=== PATIENT | male | born 1965 | race Caucasian/White ===

== ENCOUNTER 2016-04-06 17:51 | Outpatient (CLI) | payer BC ==
--- NOTE | 2016-04-10 16:50 | DIAGNOSTIC IMAGING REPORT ---
PROCEDURE: US SOFT TISSUE THYR/NECK/HEAD INDICATION: HYPERTHYROID TECHNIQUE: Black scale and color Doppler sonographic images of the thyroid gland were obtained. COMPARISON: None. FINDINGS: RIGHT LOBE: Right lobe of the thyroid gland is enlarged (5.1 x 2.7 x 2.1 cm) with multiple nodules (large 3.3 cm lower pole and a smaller 0.9 cm upper pole nodules). LEFT LOBE: Left lobe of the thyroid gland is enlarged (5.2 x 2.3 x 1.9 cm) with multiple nodules (1.3 cm lower pole, 1.2 cm mid pole, 0.7 cm upper pole cyst). ISTHMUS: The isthmus is enlarged secondary to a 1.5 x 0.6 x 1.4 cm complex nodule. IMPRESSION: 1. Moderately enlarged multinodular thyroid gland, most consistent with multiple degenerating benign adenomas. Early follow-up thyroid ultrasound in 6 months is recommended to confirm stability. 2. Nuclear medicine thyroid scan with uptakes is recommended at this time, to evaluate the etiology of patient's hyperthyroidism. 4. Findings discussed with SUSAN Miller.
== END 2016-04-06 23:00 ==
LOC: US SRH 17:51
DX: E04.2 Nontoxic multinodular goiter (principal)

== ENCOUNTER 2016-04-13 20:55 | Emergency (ER) | payer BC ==
--- NOTE | 2016-04-13 23:29 | DIAGNOSTIC IMAGING REPORT ---
PROCEDURE: XR ANKLE 3 OR 4 VIEWS - RIGHT INDICATION: TRAUMA/INJURY TECHNIQUE: Four views. COMPARISON: None. FINDINGS: There mild degenerate changes of the right ankle mortise joint with small peripheral osteophytes. Osseous structures and joint spaces are otherwise normal. There is a moderate Achilles spur of the right os calcis (incidental finding). IMPRESSION: 1. Mild degenerative changes. 2. Otherwise negative right ankle.
--- NOTE | 2016-04-13 23:33 | ED CLINICAL REPORT ---
Clinical Report - Physicians/Mid Levels [facility] [address] [place] [address] 04/13/2016 20:55 Patient: RONAN MONAHAN Arrived- By private vehicle. Historian- patient. HISTORY OF PRESENT ILLNESS Chief Complaint: Injury to the right ankle. The injury happened today. Occurred at work. ( patient reports no preceding symptoms.). (tripped and fell). Patient is experiencing moderate pain. Patient denies injury to the head or neck. No other injury. (Patient reports moderate amount of swelling. patient states that there has been no numbness weakness, or tingling. Patient has been able to ambulate however reports that this worsens the discomfort. Patient reports that it is improved with rest. Patient states that he has hadankle sprains in the past.). REVIEW OF SYSTEMS The patient complains of pain on weight bearing. He has had swelling. No tingling, weakness, numbness or skin laceration. All systems otherwise negative, except as recorded above. PAST HISTORY See nurses notes. Tetanus immunization status is up-to-date. Medications: Unable to Obtain. Allergies: No Known Drug Allergy. SOCIAL HISTORY Never smoker. No alcohol use or drug use. Is a local resident. ADDITIONAL NOTES The nursing notes have been reviewed. PHYSICAL EXAM Vital Signs: 04/13/2016 22:47 BP: 137/62. HR: 82. RR: 16. O2 saturation: 100%. Temp: 97.8 F. Pain level now: 8/10. Blood pressure normal. Oxygen saturation normal. Appearance: Alert. Oriented X3. No acute distress. Head: Head atraumatic. Neck: Normal inspection. Neck supple. C-spine non-tender. No vertebral tenderness. CVS: Normal heart rate and rhythm. Heart sounds normal. Pulses normal. Respiratory: No respiratory distress. Breath sounds normal. Chest nontender. Abdomen: No visible injury. Soft and nontender. Bowel sounds normal. No mass. Back: Normal inspection. No tenderness. ROM normal. Skin: Skin intact. Skin warm and dry. Extremities: (tenderness to the lateral malleolus. No bony abnormality. No crepitus. Skin is intact. No overlying skin changes. patient is able move all toes. Sensation is grossly intact. Capillary refill less than 3 seconds. Compartments are soft. No other bony abnormalities or tenderness noted. No tenderness at the knee.). LABS, X-RAYS, AND EKG Rt Ankle X-ray: No fracture. Normal alignment. No bony lesion. Mild soft tissue swelling diffusely. Views: AP, lateral, mortise and oblique. The X-rays were independently viewed by me and interpreted contemporaneously by me. PROGRESS AND PROCEDURES Course of Care: The patient is a pleasant 51-year-old male presenting for evaluation of right-sided ankle pain. On examination, patient has tenderness to the lateral malleolus. Because of this, radiographs of the ordered of the right ankle. No signs of neurovascular compromise. Does not appear to be a septic joint or have compartment syndrome. Patient is agreeable to treatment plan. Patient's workup does not show any acute osseous abnormalities. Patient continues to be neurovascularly intact on repeat examination. I discussed the patient workup here in emergency department and need for follow-up with his doctor. Do not feel patient needs to be admitted to the hospital or require further emergency department workup/evaluation. Discussed with patient workup, diagnosis, home care, follow-up, and return precautions. All questions answered. The patient expressed understanding of these instructions and was agreeable to them. Disposition: Discharged. Condition: good. CLINICAL IMPRESSION 04/13/2016 23:12 Temp: 97.7 F. 04/13/2016 22:47 BP: 137/62. HR: 82. RR: 16. O2 saturation: 100%. Temp: 97.8 F. Pain level now: 8/10. Blood pressure normal. Oxygen saturation normal. Sprain of the talofibular ligament of the right ankle (acute). INSTRUCTIONS Warnings: GENERAL WARNINGS: Return or contact your physician immediately if your condition worsens or changes unexpectedly, if not improving as expected, or if other problems arise. Specifically return if pain, vomiting, bleeding, breathing difficulty or fever. Prescription Medications: [place] 5 mg / 325 mg tablets: take 1 orally every 6 hours as needed for pain. Dispense twelve (12). No refill. Substitution is permissible. OTC Medications: Motrin (available over the counter): take according to label instructions. Follow-up: Return to the emergency department as needed. Follow up with your doctor in one week. Reason for referral: recheck today's concerns. Summary of care provided to patient via paper. Screening today revealed the patient's blood pressure to be in the normal range. The patient should follow up with a primary care provider for blood pressure management. Understanding of the discharge instructions verbalized by patient. (Electronically signed by Raul Stern Dr. 04/14/2016 5:25)
--- NOTE | 2016-04-13 23:33 | ED ORDER SUMMARY ---
..... Patient: RONAN MONAHAN OrderSheet [facility] VisitID: [id number] [address] [place] [address] 51y, M Registration Date/Time: 04/13/2016 ORDER SHEET Weight: 129.2 kg (stated) Allergies: No Known Drug Allergy GENERAL ORDERS: Ankle 3 or 4V Right Urgent (22:49 04/13/2016 Kirk Gipson) ([facility] 22:52 [facility] Bingo Clerk) (23:08 [facility]) MEDICATION ORDERS: IV FLUIDS: ORDER SHEET NOTES: [Electronically signed by Stefania Vasquez R.N. (02:36 04/14/2016)] [Electronically signed by Raul Stern Dr. (05:25 04/14/2016)] [Electronically locked/signed by Stefania Vasquez R.N. (02:36 04/14/2016)]
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
--- NOTE | 2016-04-13 23:33 | ED ORDER SUMMARY ---
..... Patient: RONAN MONAHAN OrderSheet [facility] VisitID: [id number] [address] [place] [address] 51y, M Registration Date/Time: 04/13/2016 ORDER SHEET Weight: 129.2 kg (stated) Allergies: No Known Drug Allergy GENERAL ORDERS: Ankle 3 or 4V Right Urgent (22:49 04/13/2016 Kirk Gipson) ([facility] 22:52 [facility] Handhole Machine Operator) (23:08 [facility]) MEDICATION ORDERS: IV FLUIDS: ORDER SHEET NOTES: [Electronically signed by Stefania Vasquez R.N. (02:36 04/14/2016)] [Electronically signed by Raul Stern Dr. (05:25 04/14/2016)] [Electronically locked/signed by Stefania Vasquez R.N. (02:36 04/14/2016)]
--- NOTE | 2016-04-14 05:25 | ED MAR SUMMARY ---
..... Medication Administration Record [facility] [address] [place], [place] [id number] Patient: RONAN MONAHAN Visit ID: [id number] 51y, M Weight: 129.2 kg Height/Length: 74 in BMI: 36.6 ALLERGIES: No Known Drug Allergy
--- NOTE | 2016-04-14 05:25 | ED MED RECONCILIATION SUMMARY ---
Patient: RONAN MONAHAN Medication Reconciliation Report [facility] VisitID: [id number] [address] [place] [address] 51y, M Registration Date/Time: 04/13/2016 Weight: 129.2 kg Height/Length: 74 in. BMI: 36.6 ALLERGIES: No Known Drug Allergy The patient's Home Medications are listed below: Unable to obtain. The source(s) of the original Home Medication information: patient The following Medications were given to the patient in the Emergency Department: None. The following Medications were prescribed to the patient: Motrin (available over the counter): take according to label instructions. -- Raul Stern Dr. [place] 5 mg / 325 mg tablets: take 1 orally every 6 hours as needed for pain. Dispense twelve (12). No refill. Substitution is permissible. -- Raul Stern Dr.
--- NOTE | 2016-04-14 05:25 | ED DISCHARGE INSTRUCTIONS ---
Patient: RONAN MONAHAN General Instructions [facility] VisitID: [id number] [address] [place] [address] 51y, M Registration Date/Time: 04/13/2016 04/13/2016 23:12 Temp: 97.7 F. 04/13/2016 22:47 BP: 137/62. HR: 82. RR: 16. O2 saturation: 100%. Temp: 97.8 F. Pain level now: 8/10. Blood pressure normal. Oxygen saturation normal. Sprain of the talofibular ligament of the right ankle (acute). INSTRUCTIONS Warnings: GENERAL WARNINGS: Return or contact your physician immediately if your condition worsens or changes unexpectedly, if not improving as expected, or if other problems arise. Specifically return if pain, vomiting, bleeding, breathing difficulty or fever. Prescription Medications: Sharon 5 mg / 325 mg tablets: take 1 orally every 6 hours as needed for pain. Dispense twelve (12). No refill. Substitution is permissible. OTC Medications: Motrin (available over the counter): take according to label instructions. Follow-up: Return to the emergency department as needed. Follow up with your doctor in one week. Reason for referral: recheck today's concerns. Summary of care provided to patient via paper. Screening today revealed the patient's blood pressure to be in the normal range. The patient should follow up with a primary care provider for blood pressure management. Understanding of the discharge instructions verbalized by patient. ADDITIONAL INFORMATION Sprain, Ankle,With X-Ray A sprain is an injury to the ligaments or capsule that holds a joint together. There are no broken bones. Most sprains take from four to six weeks to heal. If the ligament is completely torn (severe sprain), it can take several months to recover. Mild to moderate sprains may be treated with an elastic wrap or an in-shoe splint to provide support and prevent re-injury. A mild sprain may not require any additional support. A severe sprain may require surgery to repair. Home care The following guidelines will help you care for your injury at home: Stay off the injured leg as much as possible until you can walk on it without pain. If you have a lot of pain with walking, crutches or a walker may be prescribed. (These can be rented or purchased at many pharmacies and surgical or orthopedic supply stores). Follow your doctor's advice regarding when to begin bearing weight on that leg. Keep your leg elevated to reduce pain and swelling. When sleeping, place a pillow under the injured leg. When sitting, support the injured leg so it is level with your waist. This is very important during the first 48 hours. Apply an ice pack (ice cubes in a plastic bag, wrapped in a towel) over the injured area for 20 minutes every 12 hours the first day. You can place the ice pack directly over the splint/cast. If you were given a boot, open it to apply the ice pack. Continue with ice packs 34 times a day for the next two days, then as needed for the relief of pain and swelling. You may use acetaminophen or ibuprofen to control pain, unless another pain medicine was prescribed. If you have chronic liver or kidney disease or ever had a stomach ulcer or GI bleeding, talk with your doctor before using these medicines. You may return to sports after healing, when you can run without pain. A sprained ankle is at risk for re-injury during the first six weeks. During that time, protect your ankle with an in-shoe splint that prevents tilting of your ankle from side to side. This is very important if you do active work or play sports during that time. Follow-up care Any X-rays you had today dont show any broken bones, breaks, or fractures. Sometimes fractures dont show up on the first X-ray. Bruises and sprains can sometimes hurt as much as a fracture. These injuries can take time to heal completely. If your symptoms dont improve or they get worse, talk with your doctor. You may need a repeat X-ray. When to seek medical care Get prompt medical attention if any of the following occur: The plaster cast or splint gets wet or soft The fiberglass cast or splint gets wet and does not dry for 24 hours Pain or swelling increases, or redness appears Toes become cold, blue, numb or tingly Re-injure your ankle Hydrocodone Bitartrate, Acetaminophen Oral tablet What is this medicine? ACETAMINOPHEN; HYDROCODONE (a set a ANGELIC norbert fen; shan droe KOE done) is a pain reliever. It is used to treat mild to moderate pain. How should I use this medicine? Take this medicine by mouth. Swallow it with a full glass of water. Follow the directions on the prescription label. If the medicine upsets your stomach, take the medicine with food or milk. Do not take more than you are told to take. Talk to your dean of girls regarding the use of this medicine in children. This medicine is not approved for use in children. What side effects may I notice from receiving this medicine? Side effects that you should report to your doctor or health career center director as soon as possible: allergic reactions like skin rash, itching or hives, swelling of the face, lips, or tongue breathing problems confusion feeling faint or lightheaded, falls stomach pain yellowing of the eyes or skin Side effects that usually do not require medical attention (report to your doctor or health career center director if they continue or are bothersome): nausea, vomiting stomach upset What may interact with this medicine? alcohol antihistamines isoniazid medicines for depression, anxiety, or psychotic disturbances medicines for sleep muscle relaxants naltrexone narcotic medicines (opiates) for pain phenobarbital ritonavir tramadol What if I miss a dose? If you miss a dose, take it as soon as you can. If it is almost time for your next dose, take only that dose. Do not take double or extra doses. Where should I keep my medicine? Keep out of the reach of children. This medicine can be abused. Keep your medicine in a safe place to protect it from theft. Do not share this medicine with anyone. Selling or giving away this medicine is dangerous and against the law. Store at room temperature between 15 and 30 degrees C (59 and 86 degrees F). Protect from light. Keep container tightly closed. Throw away any unused medicine after the expiration date. Discard unused medicine and used packaging carefully. Pets and children can be harmed if they find used or lost packages. What should I tell my health care provider before I take this medicine? They need to know if you have any of these conditions: brain tumor Crohn's disease, inflammatory bowel disease, or ulcerative colitis drink more than 3 alcohol-containing drinks per day drug abuse or addiction head injury heart or circulation problems kidney disease or problems going to the bathroom liver disease lung disease, asthma, or breathing problems an unusual or allergic reaction to acetaminophen, hydrocodone, other opioid analgesics, other medicines, foods, dyes, or preservatives or trying to get breast-feeding What should I watch for while using this medicine? Tell your doctor or health career center director if your pain does not go away, if it gets worse, or if you have new or a different type of pain. You may develop tolerance to the medicine. Tolerance means that you will need a higher dose of the medicine for pain relief. Tolerance is normal and is expected if you take the medicine for a long time. Do not suddenly stop taking your medicine because you may develop a severe reaction. Your body becomes used to the medicine. This does NOT mean you are addicted. Addiction is a behavior related to getting and using a drug for a non-medical reason. If you have pain, you have a medical reason to take pain medicine. Your doctor will tell you how much medicine to take. If your doctor wants you to stop the medicine, the dose will be slowly lowered over time to avoid any side effects. You may get drowsy or dizzy when you first start taking the medicine or change doses. Do not drive, use machinery, or do anything that may be dangerous until you know how the medicine affects you. Stand or sit up slowly. There are different types of narcotic medicines (opiates) for pain. If you take more than one type at the same time, you may have more side effects. Give your health care provider a list of all medicines you use. Your doctor will tell you how much medicine to take. Do not take more medicine than directed. Call emergency for help if you have problems breathing. The medicine will cause constipation. Try to have a bowel movement at least every 2 to 3 days. If you do not have a bowel movement for 3 days, call your doctor or health career center director. Too much acetaminophen can be very dangerous. Do not take Tylenol (acetaminophen) or medicines that contain acetaminophen with this medicine. Many non-prescription medicines contain acetaminophen. Always read the labels carefully. You have been given the following additional information: Sprain, Ankle, With X-Ray Hydrocodone Bitartrate, Acetaminophen Oral tablet (Electronically signed by Raul Stern Dr. 04/14/2016 5:25)
--- NOTE | 2016-04-14 05:25 | ED MED RECONCILIATION SUMMARY ---
Patient: RONAN MONAHAN Medication Reconciliation Report [facility] VisitID: [id number] [address] [place] [address] 51y, M Registration Date/Time: 04/13/2016 Weight: 129.2 kg Height/Length: 74 in. BMI: 36.6 ALLERGIES: No Known Drug Allergy The patient's Home Medications are listed below: Unable to obtain. The source(s) of the original Home Medication information: patient The following Medications were given to the patient in the Emergency Department: None. The following Medications were prescribed to the patient: Motrin (available over the counter): take according to label instructions. -- Raul Stern Dr. Ashley 5 mg / 325 mg tablets: take 1 orally every 6 hours as needed for pain. Dispense twelve (12). No refill. Substitution is permissible. -- Raul Stern Dr.
--- NOTE | 2016-04-14 05:25 | ED MAR SUMMARY ---
..... Medication Administration Record [facility] [address] [place] [place], [place] [id number] Patient: RONAN MONAHAN Visit ID: [id number] 51y, M Weight: 129.2 kg Height/Length: 74 in BMI: 36.6 ALLERGIES: No Known Drug Allergy
== END 2016-04-13 23:46 | disposition home or self-care (01) ==
LOC: ED SRH 20:55
DX: S93.491A Sprain of other ligament of right ankle, initial encounter (principal); W01.0XXA Fall on same level from slipping, tripping and stumbling without subsequent striking against object, initial encounter; Y93.9 Activity, unspecified; Y92.9 Unspecified place or not applicable; Y99.0 Civilian activity done for income or pay